=== PATIENT | female | born 1950 | race Caucasian/White ===

== ENCOUNTER 2019-08-19 11:24 | Emergency (ER) | payer MEDICARE, OTHER ==
[2019-08-19] MEDS ORDERED: Acetaminophen 500 MG TAB ONE (12:11)
[2019-08-19] MEDS ORDERED: Adacel (T-DAP) 0.5 ML SYRINGE ONE (12:11)
--- NOTE | 2019-08-19 12:32 | CT ---
CT Brain WO Con HISTORY: Fall with head injury. COMPARISON: None. FINDINGS: The ventricular and cisternal system is within normal limits. There is some decreased atten uation to the periventricular white matter suggesting some chronic white matter change. There are no signs of intracerebral hemorrhage or extra-axial fluid collections. The mastoid air cells and visu alized sinuses are clear. IMPRESSION: No acute intracranial abnormalities.
--- NOTE | 2019-08-19 12:36 | CT ---
CT Facial Bones WO Con HISTORY: Fall with right-sided facial abrasion. COMPARISON: None. FINDINGS: The nasal bone and zygomatic arches are intact. Pterygoid processes are intact. The sinuses are clear. No air-fluid levels. There is no evidence of o rbital or maxillary fracture. There are arthritic changes of the condyle regions. There is no evidence of any mandibular fracture. IMPRESSION: No evidence of facial bone fracture.
== END 2019-08-19 12:55 | disposition home or self-care (01) ==
LOC: NAV ERS 11:24
DX: S01.81XA Laceration without foreign body of other part of head, initial encounter (principal); E11.9 Type 2 diabetes mellitus without complications; E03.9 Hypothyroidism, unspecified; E78.5 Hyperlipidemia, unspecified; I10 Essential (primary) hypertension; Z79.899 Other long term (current) drug therapy; W01.0XXA Fall on same level from slipping, tripping and stumbling without subsequent striking against object, initial encounter
CPT/HCPCS: 70450; 70486; 90471; 90715

== ENCOUNTER 2019-09-01 21:21 | Emergency (ER) | payer MEDICARE ==
[2019-09-01] MEDS ORDERED: Sodium Chloride 0.9% 500 ML ONE (21:51)
[2019-09-01 22:18] LABS: Band 4 % (5-11); Eosinophils 4 % (0-10); Hemoglobin 11.7 g/dL (12.0-16.0); Lymphocytes 26 % (21-51); MDiff Complete? YES; Mean Corpuscular HGB CONC 32.3 g/dL (32.0-36.0); Mean Corpuscular Hemoglobin 28.7 pg (27.0-31.0); Mean Corpuscular Volume 88.8 fL (78.0-98.0); Mean Platelet Volume 5.4 fL (7.4-10.4); Monocytes 6 % (0-10); Neutrophil 59 % (42-75); Platelet Count 375 thou/uL (130-400); Platelet Morphology Comment Appears Adequate; RBC Distribution Width 12.7 % (11.5-14.5); RBC Morphology Normal; White Blood Cell (WBC) Count 13.7 thou/uL (4.8-10.8)
[2019-09-01 22:24] LABS: ALT (SGPT) 15 U/L (8-55); AST (SGOT) 25 U/L (5-34); Albumin 4.4 g/dL (3.4-4.8); Alkaline Phosphatase 70 U/L (40-110); Anion Gap 19 mmol/L (10-20); BUN (Urea Nitrogen) 37 mg/dL (9.8-20.1); Bilirubin, Total 0.3 mg/dL (0.2-1.2); CK (CPK) 234 U/L (29-168); Calc. Creatinine Clearance 0 mL/min (70-130); Calcium 9.7 mg/dL (7.8-10.44); Carbon Dioxide 19 mmol/L (23-31); Chloride 102 mmol/L (98-107); Estimated GFR-MDRD 17; Globulin 3.7 g/dL (2.4-3.5); Glucose 115 mg/dL (80-115); Lipase 50 U/L (8-78); Potassium 4.9 mmol/L (3.5-5.1); Protein, Total 8.1 g/dL (6.0-8.3); Sodium 135 mmol/L (136-145)
[2019-09-01 22:28] LABS: Bilirubin Negative (Negative); Blood, Urine Negative (Negative); Clarity Clear (Clear); Glucose, Urine (Dipstick) Negative (Negative); Leukocyte Negative (Negative); Nitrite Negative (Negative); Protein, Urine (Dipstick) Trace mg/dL (Neg-Trace); Urobilinogen 0.2 mg/dL (Less than 2)
--- NOTE | 2019-09-01 22:28 | CT ---
EXAM: Brain CTWithout contrast: HISTORY: Altered mental status COMPARISON: 08/19/2019 FINDINGS: No focal mass or midline shift. No intra or extra-axial hemorrhage. Sinuses and mastoids are clear of acute process. IMPRESSION: No mass or bleed or other significant acute intracranial process. Stable appearance.
[2019-09-01] MEDS ORDERED: Acetaminophen 500 MG TAB ONE (22:54)
== END 2019-09-01 22:09 | disposition home or self-care (01) ==
LOC: NAV ERS 21:21
DX: R41.0 Disorientation, unspecified (principal); R51 Headache; E11.9 Type 2 diabetes mellitus without complications; E03.9 Hypothyroidism, unspecified; E78.5 Hyperlipidemia, unspecified; I10 Essential (primary) hypertension; Z79.899 Other long term (current) drug therapy
CPT/HCPCS: 36416; 70450; 80053; 81003; 82140; 82550; 83690; 84443; 84484; 85025; 93005; 96360; 36415-59; A4353; J7050

== ENCOUNTER 2019-09-24 20:21 | Emergency (ER) | payer MEDICARE ==
[2019-09-24 20:54] LABS: #Basophils 0.2 thou/uL (0.0-0.2); #Eosinphils 0.4 thou/uL (0.0-0.7); #Lymphocytes 2.5 thou/uL (1.20-3.40); #Monocytes 0.8 thou/uL (0.11-0.59); #Neutrophils 7.1 thou/uL (1.40-6.50); %Basophils 1.8 % (0.0-1.0); %Eosinophils 3.5 % (0.0-10.0); %Lymphocytes 22.9 % (21.0-51.0); %Monocytes 7.2 % (0.0-10.0); %Neutrophils 64.6 % (42.0-75.0); Hemoglobin 10.6 g/dL (12.0-16.0); Mean Corpuscular HGB CONC 31.4 g/dL (32.0-36.0); Mean Corpuscular Hemoglobin 28.6 pg (27.0-31.0); Mean Corpuscular Volume 91.1 fL (78.0-98.0); Mean Platelet Volume 5.9 fL (7.4-10.4); Platelet Count 346 thou/uL (130-400); RBC Distribution Width 12.6 % (11.5-14.5); Red Blood Cell (RBC) Count 3.69 mill/uL (4.20-5.40)
--- NOTE | 2019-09-24 21:04 | RAD ---
EXAM: Single view of the chest HISTORY: Tachycardia COMPARISON: 12/14/2012 FINDINGS: Single view of the chest shows a normal sized cardiomediastinal silhouette. There is no mae dence of consolidation, mass, or pleural effusion. The bones are unremarkable. IMPRESSION: No evidence of acute cardiopulmonary disease
[2019-09-24 21:08] LABS: ALT (SGPT) 12 U/L (8-55); AST (SGOT) 16 U/L (5-34); Albumin 4.3 g/dL (3.4-4.8); Alkaline Phosphatase 69 U/L (40-110); Anion Gap 18 mmol/L (10-20); BUN (Urea Nitrogen) 39 mg/dL (9.8-20.1); Bilirubin, Total 0.2 mg/dL (0.2-1.2); Calc. Creatinine Clearance 0 mL/min (70-130); Calcium 9.4 mg/dL (7.8-10.44); Carbon Dioxide 19 mmol/L (23-31); Chloride 108 mmol/L (98-107); Estimated GFR-MDRD 19; Globulin 3.3 g/dL (2.4-3.5); Glucose 121 mg/dL (80-115); Potassium 4.9 mmol/L (3.5-5.1); Protein, Total 7.6 g/dL (6.0-8.3); Sodium 140 mmol/L (136-145)
== END 2019-09-24 22:21 | disposition home or self-care (01) ==
LOC: NAV ERS 20:21
DX: F41.9 Anxiety disorder, unspecified (principal); R00.2 Palpitations; E11.9 Type 2 diabetes mellitus without complications; E03.9 Hypothyroidism, unspecified; E78.5 Hyperlipidemia, unspecified; I10 Essential (primary) hypertension; Z79.899 Other long term (current) drug therapy
CPT/HCPCS: 71045; 80053; 84484; 85025; 93005

== ENCOUNTER 2020-05-24 15:03 | Emergency (ER) | payer MEDICARE ==
[2020-05-24] MEDS ORDERED: Metoclopramide HCl 10 MG/2 ML VIAL ONE (16:42)
== END 2020-05-24 17:02 | disposition home or self-care (01) ==
LOC: NAV ERS 15:03
DX: R13.10 Dysphagia, unspecified (principal); E11.9 Type 2 diabetes mellitus without complications; E03.9 Hypothyroidism, unspecified; E78.5 Hyperlipidemia, unspecified; I10 Essential (primary) hypertension; Z79.899 Other long term (current) drug therapy
CPT/HCPCS: 96372; J1610; J2765